=== PATIENT | male | born 1960 | race Hispanic/Latino ===

== ENCOUNTER 2016-10-05 09:49 | Day surgery (SDC) | payer BC ==
[2016-10-05] MEDS ORDERED: NACL 0.9% 1000 ML 1,000 ML IV SCH (11:00)
--- NOTE | 2016-10-05 11:07 | Anesthesia Consultation ---
Anesthesia Consult and Med Hx Date of service: 10/05/16 - Airway Anesthetic Teeth Evaluation: Good, Crowns ROM Head & Neck: Adequate Mental/Hyoid Distance: Adequate Mallampati Class: Class II Intubation Access Assessment: Probably Good - Pulmonary Exam CTA: Yes - Cardiac Exam Cardiac Exam: RRR - Pre-Operative Health Status ASA Pre-Surgery Classification: ASA2 Proposed Anesthetic Plan: MAC - Pulmonary Hx Smoking: Yes (1/2 PPD x 25 yrs) Hx Asthma: Yes - Cardiovascular System Hx Hypertension: Yes (10-12 YRS; + dysplipidemia) Hx Coronary Artery Disease: No - Central Nervous System CVA: No - Gastrointestinal Hx Gastroesophageal Reflux Disease: No - Endocrine Hx Renal Disease: No Hx Non-Insulin Dependent Diabetes: No - Hematic Hx Anemia: No - Other Systems Hx Alcohol Use: Yes (occ) Hx Substance Use: No Hx Cancer: Yes (recent dx of basal CA on face) Hx Obesity: No
--- NOTE | 2016-10-05 11:08 | Anesthesia Day of Surgery ---
Anesthesia Day of Surgery - Day of Surgery Patient Examined: Yes Patient H&P Reviewed: Yes Patient is NPO: Yes
[2016-10-05] MEDS ORDERED: DIPRIVAN 10 MG/ML IV ONE ×2 (11:24)
[2016-10-05] MEDS ORDERED: XYLOCAINE MPF 2% ONE (11:35)
[2016-10-05] MEDS ORDERED: NEO SYNEPHRINE/NS Syringe(OR USE) IV ONE (11:35)
--- NOTE | 2016-10-05 11:55 | Short Stay Summary ---
Short Stay Documentation Date of service: 10/05/16 - History H&P: obtained from office - Allergies and Medications Current Medications: Allergies ragweed pollen Allergy (Verified 10/05/16 11:33) Unknown Home Medications Medication Instructions Recorded Confirmed Last Taken Type RX: HYDROcodone/ACETAMINOPHEN 1 tab PO Q6HR PRN 08/10/15 10/05/16 09/21/16 History [[facility] 7.5-325 mg TAB] RX: Losartan Potassium 50 mg PO QDAY 08/10/15 10/05/16 10/05/16 History 0400 RX: Simvastatin 20 mg PO QDAY 08/10/15 10/05/16 10/04/16 History RX: Aspirin [Adult Low Dose 81 mg PO DAILY 08/14/15 10/05/16 10/04/16 History Aspirin EC] Combivent Respimat 20 - 100 mcg INHALATION PRN 10/05/16 10/05/16 10/05/16 History 0400 Active Medications Sodium Chloride (Nacl 0.9% 1000 Ml) 1,000 mls @ 50 mls/hr IV DIRECT OMEGA Last Admin: 10/05/16 11:29 Dose: 50 mls/hr Midazolam HCl (Versed) 2 mg IV PREOP NR Stop: 10/05/16 23:59 Last Admin: 10/05/16 11:30 Dose: 2 mg - Brief post op/procedure progress note Date of procedure: 10/05/16 Findings: see dictation Estimated blood loss: none Pathology: none Condition: stable - Disposition Condition at discharge: Good Disposition: DISCHARGED TO HOME OR SELFCARE - Discharge Diagnoses (1) Colon cancer screening Status: Acute Short Stay Discharge Plan Activity: other (no driving for 24 hours.) Weight Bearing Status: Full Weight Bearing Diet: regular Follow up with: JONG STEVENS JR, MD [Primary Care Provider] - 7 Days
--- NOTE | 2016-10-05 11:56 | Operative Report ---
Operative Report Operative Report: Date of procedure: 10/05/2016 Preprocedure diagnosis: Colon cancer screening, no prior studies. Average risk. Post procedure diagnosis: Mild left colon diverticulosis. Procedure: Colonoscopy to the cecum Endoscopist: Dr. Lentz Anesthesia: Monitored anesthesia care per anesthesia department Estimated blood loss: 0 Medications: Monitored anesthesia care. See separate report by anesthesia for details. After careful discussion of the nature and purpose of the procedure as well as details of the technique risks benefits and alternatives the patient gave consent. Please see recent history and physical from the office. The patient was placed in the left lateral decubitus position and medicated per anesthesia. A rectal exam was performed sphincter tone was normal there were no masses palpable. The FedBidn 570 scope was passed transanally and advanced under continuous direct vision without difficulty to the cecum. The colon was well prepared. The cecum was normal. The ascending colon was normal and on forward and retroflexed views. The transverse colon is normal. The descending colon and sigmoid colon revealed a few scattered diverticula. The rectum was normal on forward and retroflexed views. The procedure was well-tolerated overall and the patient was observed in recovery. Conclusions: Mild left colon diverticulosis. Plan: Repeat colonoscopy in 10 years Signed electronically: Maximo Lentz M.D.
[2016-10-05] MEDS ORDERED: VERSED IV NR (12:00)
[2016-10-05 12:27] VITALS: BP 124/84
--- NOTE | 2016-10-05 12:58 | Post Anesthesia Evaluation ---
- Post Anesthesia Evaluation Patient Participated: Yes Airway Patent: Yes Stable Respiratory Function: Yes Nausea/Vomiting: No Temp > 96.8F: Yes Pain Manageable: Yes Adequeate Hydration: Yes Anesthesia Complications: No Block Receding Appropriately: Not Applicable Patient on Ventilator: No
== END 2016-10-05 09:50 | disposition home or self-care (01) ==
LOC: GIO 09:49
PROVIDERS: ATTEND Internal Medicine Gastroenterology
DX: Z12.11 Encounter for screening for malignant neoplasm of colon (principal); K57.30 Diverticulosis of large intestine without perforation or abscess without bleeding; I10 Essential (primary) hypertension; F17.210 Nicotine dependence, cigarettes, uncomplicated; J45.909 Unspecified asthma, uncomplicated; E78.5 Hyperlipidemia, unspecified; Z98.890 Other specified postprocedural states; Z72.89 Other problems related to lifestyle; Z83.79 Family history of other diseases of the digestive system; Z80.0 Family history of malignant neoplasm of digestive organs
CPT/HCPCS: 45378; J2250; J2370; J2704; J7030